=== PATIENT | male | born 1965 | race Hispanic/Latino ===

== ENCOUNTER 2017-11-17 19:41 | Emergency (ER) | payer SELFPAY ==
[~2017-11-17 19:41] MED LIST: FISH; OSTEO BI-FLEX1 EAC1; VIT B-12; VIT. C
[2017-11-25] MEDS ORDERED: ABX (16:38)
== END 2017-11-17 19:49 | disposition short-term general hospital (02) ==
LOC: ER 19:41
DX: R10.9 Unspecified abdominal pain (principal)

== ENCOUNTER 2017-11-26 05:38 | Observation (INO) | payer OTHER ==
[~2017-11-26] VITALS: Ht 177.8 cm; Wt 119.3 kg
[~2017-11-26 05:38] MED LIST changes: +ABX
[2017-11-26] MEDS ORDERED: CEPHALEXIN500 MG PO (06:22)
[2017-11-26] MEDS ORDERED: FLOMAX0.4 MG PO (06:22)
[2017-11-26 06:44] LABS: BASOPHILS # (AUTO) 0.1 (0.0-0.1); BASOPHILS % 0.9 % (0.0-1.0); EOSINOPHILS # (AUTO) 0.1 (0.0-0.4); EOSINOPHILS % 1.9 % (0.0-6.0); HEMATOCRIT 48.3 % (38.2-49.6); HEMOGLOBIN 16.4 g/dL (14.0-18.0); LYMPHOCYTES # (AUTO) 2.1 (1.0-3.2); LYMPHOCYTES % 36.3 % (18.0-39.1); MEAN CORPUSCULAR HEMOGLOBIN 31.2 pg (28-32); MEAN CORPUSCULAR VOLUME 91.8 fL (81-99); MONOCYTES # (AUTO) 0.4 (0.2-0.8); MONOCYTES % 7.4 % (4.4-11.3); NEUTROPHILS # (AUTO) 3.1 (2.1-6.9); NEUTROPHILS % 53.2 % (38.7-80.0); PLATELET COUNT 292 x10e3/uL (140-360); RED BLOOD COUNT 5.26 x10e6/uL (4.3-5.7); RED CELL DISTRIBUTION WIDTH 12.6 % (11.7-14.4)
[2017-11-26 06:54] LABS: BLOOD UREA NITROGEN 21 mg/dL (7-26); BUN/CREATININE RATIO 24 (6-25); CARBON DIOXIDE 25 mmol/L (22-29); CHLORIDE 107 mmol/L (98-107); CREATININE, SERUM 0.86 mg/dL (0.72-1.25); EST GLOMERULAR FILTRATION RATE > 60 ML/MIN (60-); GLUCOSE 103 mg/dL (74-118); SODIUM 141 mmol/L (136-145)
--- NOTE | 2017-11-26 07:05 | Diagnostic Imaging Report ---
EXAMINATION: CHEST 2 VIEWS INDICATION: Presurgical assessment. COMPARISON: None FINDINGS: TUBES and LINES: None. LUNGS: Lungs are well inflated. Lungs are clear. There is no evidence of pneumonia or pulmonary edema. PLEURA: No pleural effusion or pneumothorax. HEART AND MEDIASTINUM: The cardiomediastinal silhouette is unremarkable. BONES AND SOFT TISSUES: No acute osseous lesion. Soft tissues are unremarkable. UPPER ABDOMEN: No free air under the diaphragm. IMPRESSION: No acute thoracic abnormality. Signed by: Dr. Arley Sorensen M.D. on 11/26/2017 7:01 AM
[2017-11-26] MEDS ORDERED: BUPIVACAINE 0.25% 30ML SDV INJ ONE (07:09)
[2017-11-26] MEDS ORDERED: BACITRACIN 50,000 UNIT VIAL ONE (07:09)
[2017-11-26] MEDS ORDERED: BACITRACIN ZINC 15 GM OINT ONE (10:07)
[2017-11-26] MEDS ORDERED: HYDROMORPHONE 1MG/1ML INJ IV PRN (10:30)
[2017-11-26] MEDS ORDERED: PROMETHAZINE HCL (IM) 25 MG/ML VIAL IV PRN (10:30)
[2017-11-26] MEDS ORDERED: FENTANYL CITRATE/PF 100MCG/2 ML INJ ONE ×2 (10:34→19:06)
[2017-11-26] MEDS ORDERED: PROMETHAZINE 12.5MG/ NACL 0.9% 50 ML IV PRN (10:45)
[2017-11-26] MEDS ORDERED: HYDROMORPHONE 2MG/ML INJ ONE (11:05)
--- NOTE | 2017-11-26 11:06 | Operative Report ---
DATE OF PROCEDURE: November 26, 2017 PREOPERATIVE DIAGNOSIS: Ventral hernia. POSTOPERATIVE DIAGNOSIS: Ventral hernia. PROCEDURES PERFORMED 1. Repair of ventral hernia with a double mesh. 2. Omentectomy. FITNESS SALES CONSULTANT: MICHELLE Alejo ESTIMATED BLOOD LOSS: Minimal. DRAINS: A 7 mm Juan J-Red drain. COMPLICATIONS: None. INDICATIONS AND FINDINGS: A 52-year-old male who had undergone repair of a ventral hernias as a child superior to the umbilicus around the midline. Had developed a recurrence and now is admitted for repair. INTRAOPERATIVE FINDINGS: The patient had a midline defect that was located between the umbilicus and the xiphoid region with herniation of large amounts of omentum through a sac. There was no bowel within the sac. The Ventralex large size mesh was deployed intra-abdominally, and then a 3 x 5 Ultra Pro flat mesh was placed over the previously placed intra-abdominal mesh to reinforce the closure. A 7 mm Juan J-Red drain was placed in the field. DESCRIPTION OF PROCEDURE: With the patient lying on the operative table in the supine position and after administration of general anesthesia, he was prepped and draped for repair of a ventral. A transverse incision was made across the palpable hernia, which was much larger than the actual fascial defect as is usually the case. The hernia was then dissected free from the surrounding tissues. The sac was entered. It was excised using thermal energy cautery. The omentum was excised using the same instrument, Ethicon made. The fascial edges were then prepared for closure. Then the Ventralex large mesh was deployed intra-abdominally. It was secured to the fascia with 2-0 Ethibond sutures. The straps were then cut, and then the fascia was loosely closed over the mesh to add another barrier to the exterior. Then a 3 x 5 Ultra Pro mesh was cut to appropriate size. It was placed to cover the previously placed hernia with at last 3 cm in each direction from the suture line. It was secured to the fascia with 2-0 Ethibond sutures. The wound irrigated. Bleeding points cauterized. A local block was given with plain Marcaine. Then the wound was closed in 2 layers using 2-0 chromic for the soft tissues and deeper layers, and 2-0 plain catgut for the more superficial soft tissue layer. The skin was closed with a combination of 3-0 silk and magdy. Sterile dressing and a binder were placed. The patient tolerated the procedure well. Was taken to the recovery room in stable condition. Job#: [id number] RI
[2017-11-26 13:14] VITALS: BP 139/74
[2017-11-26] MEDS: ONDANSETRON HCL INJ 2 MG/ML VIAL IV PRN ×2 (13:33→20:00)
[2017-11-26] MEDS: LEVOFLOXACIN 500MG/D5W 100ML 100 ML IV SCH ×2 (13:33→16:05)
[2017-11-26] MEDS: HYDROMORPHONE 2MG/ML INJ IV PRN ×2 (15:00→20:00)
[2017-11-26 16:00] VITALS: BP 134/74
[2017-11-26] MEDS: DEXTROSE 5%/LACTATED RINGERS 1,000 ML IV SCH ×2 (16:04→18:16)
[2017-11-26] MEDS ORDERED: LIDOCAINE HCL 2% LOCAL INJ 5 ML SDV VIAL INJ ONE (18:58)
[2017-11-26] MEDS ORDERED: GLYCOPYRROLATE INJ 1MG/ 5 ML SYR ONE (18:58)
[2017-11-26] MEDS ORDERED: NEOSTIGMINE 5 MG/5ML SYR ONE (18:58)
[2017-11-26] MEDS ORDERED: ROCURONIUM BROMIDE 10 MG/ML 5ML VIAL ONE (18:58)
[2017-11-26] MEDS ORDERED: SEVOFLURANE INHAL SOLN 250 ML PEN BTL ONE (18:58)
[2017-11-26] MEDS ORDERED: PROPOFOL IV EMULSION 10 MG/ML 20 ML VIAL ONE (18:58)
[2017-11-26] MEDS ORDERED: DEXAMETHASONE SOD PHOS INJ 4 MG/ML VIAL ONE (18:58)
[2017-11-26] MEDS ORDERED: ONDANSETRON HCL INJ 2 MG/ML VIAL ONE (18:58)
[2017-11-26] MEDS ORDERED: MIDAZOLAM HCL 2 MG/2 ML VIAL ONE (19:06)
[2017-11-26 20:00] VITALS: BP 126/73
[2017-11-27] VITALS (7 sets, daily range): BP systolic 119–137; BP diastolic 62–76
[2017-11-27] MEDS: HYDROMORPHONE 2MG/ML INJ IV PRN ×2 (04:00→10:32)
[2017-11-27] MEDS: DEXTROSE 5%/LACTATED RINGERS 1,000 ML IV SCH ×2 (04:00→19:05)
[2017-11-27] MEDS: ONDANSETRON HCL INJ 2 MG/ML VIAL IV PRN ×2 (10:31→17:21)
[2017-11-27] MEDS: HYDROCODONE/APAP 7.5MG-325MG 1 EA TAB PO PRN ×2 (10:31→17:21)
[2017-11-28] VITALS (8 sets, daily range): BP systolic 128–149; BP diastolic 62–83
[2017-11-28] MEDS: HYDROCODONE/APAP 7.5MG-325MG 1 EA TAB PO PRN ×3 (00:09→16:01)
[2017-11-28] MEDS: DEXTROSE 5%/LACTATED RINGERS 1,000 ML IV SCH ×4 (02:21→21:12)
[2017-11-28 10:09] LABS: BASOPHILS % 0.5 % (0.0-1.0); EOSINOPHILS % 0.3 % (0.0-6.0); HEMATOCRIT 44.5 % (38.2-49.6); HEMOGLOBIN 14.9 g/dL (14.0-18.0); LYMPHOCYTES # (AUTO) 1.8 (1.0-3.2); LYMPHOCYTES % 20.3 % (18.0-39.1); MEAN CORPUSCULAR HEMOGLOBIN 31.1 pg (28-32); MEAN CORPUSCULAR HGB CONC 33.5 g/dL (31-35); MEAN CORPUSCULAR VOLUME 92.9 fL (81-99); MONOCYTES # (AUTO) 0.8 (0.2-0.8); MONOCYTES % 9.4 % (4.4-11.3); NEUTROPHILS # (AUTO) 6.1 (2.1-6.9); NEUTROPHILS % 69.2 % (38.7-80.0); PLATELET COUNT 282 x10e3/uL (140-360); RED BLOOD COUNT 4.79 x10e6/uL (4.3-5.7); RED CELL DISTRIBUTION WIDTH 12.6 % (11.7-14.4)
[2017-11-28 10:30] LABS: ANION GAP 12.8 mmol/L (8-16); BLOOD UREA NITROGEN 15 mg/dL (7-26); BUN/CREATININE RATIO 18 (6-25); CARBON DIOXIDE 26 mmol/L (22-29); CHLORIDE 103 mmol/L (98-107); CREATININE, SERUM 0.85 mg/dL (0.72-1.25); EST GLOMERULAR FILTRATION RATE > 60 ML/MIN (60-); GLUCOSE 96 mg/dL (74-118); POTASSIUM 3.8 mmol/L (3.5-5.1); SODIUM 138 mmol/L (136-145)
[2017-11-28] MEDS: LEVOFLOXACIN 500MG/D5W 100ML 100 ML IV SCH (11:37)
[2017-11-28] MEDS: ONDANSETRON HCL INJ 2 MG/ML VIAL IV PRN (11:38)
[2017-11-28] MEDS: HYDROMORPHONE 2MG/ML INJ IV PRN (11:38)
[2017-11-28] MEDS ORDERED: ACETAMINOPHEN 325 MG TAB PO PRN (16:00)
[2017-11-29] VITALS: BP 128/80
[2017-11-29 04:00] VITALS: BP 152/86
[2017-11-29 08:25] VITALS: BP 127/75
[2017-11-29 09:31] VITALS: BP 127/75
[2017-11-29] MEDS: DEXTROSE 5%/LACTATED RINGERS 1,000 ML IV SCH (09:55)
[2017-11-29] MEDS ORDERED: CITRATE OF MAGNESIA 300ML BOTTLE PO ONE (10:00)
[2017-11-29] MEDS: LEVOFLOXACIN 500MG/D5W 100ML 100 ML IV SCH (11:39)
[2017-11-29 12:37] VITALS: BP 141/76
[2017-11-29 15:48] VITALS: BP 139/84
[2017-11-29] MEDS ORDERED: PROMETHAZINE HC25 M1 PO (17:46)
[2017-11-29] MEDS ORDERED: TYLENOL WITH C1 EACH PO (17:46)
== END 2017-11-29 18:23 | disposition home or self-care (01) ==
LOC: OR 05:38 → MED/SURG 10:44
PROVIDERS: ADMIT Surgery; ATTEND Surgery
DX: K43.2 Incisional hernia without obstruction or gangrene (principal); N20.1 Calculus of ureter; F32.9 Major depressive disorder, single episode, unspecified; F41.9 Anxiety disorder, unspecified
CPT/HCPCS: 36415 ×2; 49565; 49568; 71046; 80048 ×2; 85025 ×2; 88302; 93005; 96375; 96376; C1781 ×2; G0378 ×4; J1100; J1170 ×3; J1956 ×3; J2001; J2250; J2405 ×3; J7120 ×4; 96374

== ENCOUNTER 2017-12-12 19:01 | Inpatient (IN) | payer OTHER ==
[~2017-12-12] VITALS: Ht 177.8 cm; Wt 119.5 kg
[~2017-12-12 19:01] MED LIST changes: +CEPHALEXIN500 MG PO; +FLOMAX0.4 MG PO; +PROMETHAZINE HC25 M1 PO; +TYLENOL WITH C1 EACH PO
--- OUTSIDE RECORDS SUMMARY | 2017-12-12 19:04 | XMS REPORT ---
[facility] Address Unknown Phone Unavailable Care Team Providers Care Manager Generation Name Role Phone SARA VALLADARES Unavailable Unavailable Problems This patient has no known problems. Allergies, Adverse Reactions, Alerts This patient has no known allergies or adverse reactions. Medications This patient has no known medications. Results Test Description Test Time Test Comments Text Results Atomic Results Result Comments CHEST 2 VIEWS [place] [address] Patient Name: NABIL GEORGE MR #: [id number] : 1965 Age/Sex: 52/M Req #: [id number] Adm Physician: Ordered by: SARA VALLADARES MD Report #: [id number] Location: OR Room/Bed: Procedure: [id number] DX/CHEST 2 VIEWS Exam Date: 11/26/17 Exam Time : 0636 REPORT STATUS: Signed EXAMINATION: CHEST 2 VIEWS INDICATION: Presurgical assessment. COMPARISON: None FINDINGS: TUBES and LINES: None. LUNGS: Lungs are well inflated. Lungs are clear. There is no evidence of pneumonia or pulmonary edema. PLEURA: No pleural effusion or pneumothorax. HEART AND MEDIASTINUM: The cardiomediastinal silhouette is unremarkable. BONES AND SOFT TISSUES: No acute osseous lesion. Soft tissues are unremarkable. UPPER ABDOMEN: No free air under the diaphragm. IMPRESSION: No acute thoracic abnormality. Signed by: Dr. Arley Sorensen M.D. on 11/26/2017 7:01 AM Dictated By: ARLEY WILLIAMSON MD 0 Transcribed By: FRANKLYN on 11/26/17700 COPY TO: SARA VALLADARES MD
--- OUTSIDE RECORDS SUMMARY | 2017-12-12 19:04 | XMS REPORT | Clinical Summary ---
Author Author [facility] Address Unknown Phone Unavailable Care Team Providers Care Crime Scene Analyst Name Role Phone Asked, Pcp PCP Unavailable Allergies Not on File Current Medications Prescription Sig. Disp. Refills Start End Date Status Date cephalexin (KEFLEX) 500 TK ONE C PO TID TAT 0 11/17/19 Active MG capsule 18 keTOROlac (TORadol) 10 mg TK 1 T PO Q 6-8 H 0 11/17/19 Active tablet 18 tamsulosin (FLOMAX) 0.4 TK 1 C PO QHS 0 11/17/19 Active mg capsule,extended 18 release 24hr Active Problems Problem Noted Date Right ureteral stone 11/23/2017 Encounters Date Type Specialty Care Team Description 11/23/2017 Office Visit Urology Mary Beth Araya MD Right ureteral stone (Primary Dx) after 12/11/2016 Social History Tobacco Use Types Packs/Day Years Used Date Never Smoker Alcohol Use Drinks/Week oz/Week Comments No Sex Assigned at Date Recorded Not on file Last Filed Vital Signs Vital Sign Reading Time Taken Blood Pressure 123/82 11/23/2017 10:31 AM SYNCHRO ASSEMBLER Pulse 76 11/23/2017 10:31 AM SYNCHRO ASSEMBLER Temperature 36.8 C (98.2 F) 11/23/2017 10:31 AM SYNCHRO ASSEMBLER Respiratory Rate - - Oxygen Saturation - - Inhaled Oxygen - - Concentration Weight 122 kg (268 lb) 11/23/2017 10:31 AM SYNCHRO ASSEMBLER Height 177.8 cm (5' 10") 11/23/2017 10:31 AM SYNCHRO ASSEMBLER Body Mass Index 38.45 11/23/2017 10:31 AM SYNCHRO ASSEMBLER Plan of Treatment Date Type Specialty Care Team Description 12/16/2017 Office Visit Urology Mary Beth Araya MD [address] [place] [address] [phone] Health Maintenance Due Date Last Done Comments INFLUENZA VACCINE 06/08/2017 COLONOSCOPY 2017 Results Not on fileafter 12/11/2016 Insurance Payer Benefit Subscriber ID Type Phone Address Plan / Group [facility] [id number] HMO/PPO THCARE CHOICE/CHO ICE +
[2017-12-12] MEDS ORDERED: FAMOTIDINE 20 MG/2 ML VIAL IV STA (20:29)
[2017-12-12] MEDS ORDERED: PANTOPRAZOLE 40 MG 10ML VIAL IV ONE (20:30)
[2017-12-12] MEDS ORDERED: MAGNESIUM/ALUMINUM/SIMETHICONE 30 ML UDC PO ONE (20:30)
[2017-12-12] MEDS ORDERED: BELLADONNA ALK/PHENOBARBITAL 5 ML UDC PO ONE (20:30)
[2017-12-12] MEDS ORDERED: ONDANSETRON HCL 4 MG ORAL DISINTEGRATING TAB SL ONE (20:45)
[2017-12-12] MEDS ORDERED: LIDOCAINE VISC 2% SOLN 15 ML UDC PO ONE (20:45)
[2017-12-12] MEDS ORDERED: KEFLEX500 MG (21:20)
[2017-12-13] MEDS ORDERED: SODIUM CHLORIDE 0.9% 1000ML 1,000 ML ONE (01:30)
[2017-12-13] MEDS ORDERED: MORPHINE SULFATE 4 MG/ML SYR IV ONE (01:30)
[2017-12-13] MEDS: SODIUM CHLORIDE 0.9% 1000ML 1,000 ML IV SCH ×3 (01:45→22:00)
[2017-12-13] MEDS ORDERED: ONDANSETRON HCL INJ 2 MG/ML VIAL IV PRN ×4 (02:30→20:00)
[2017-12-13] MEDS ORDERED: MORPHINE SULFATE 2 MG/ML SYR IV PRN (02:30)
--- OUTSIDE RECORDS SUMMARY | 2017-12-13 12:00 | XMS REPORT | Clinical Summary ---
Author Author [facility] Address Unknown Phone Unavailable Care Team Providers Care Under Cutter Name Role Phone Asked, Pcp PCP Unavailable [...] MD Right ureteral stone (Primary Dx) after 12/12/2016 Social History Tobacco Use Types Packs/Day Years Used Date Never Smoker Alcohol Use Drinks/Week oz/Week Comments No Sex Assigned at Date Recorded Not on file Last Filed Vital Signs Vital Sign Reading Time Taken Blood Pressure 123/82 11/23/2017 10:31 AM SLACKMAN Pulse 76 11/23/2017 10:31 AM SLACKMAN Temperature 36.8 C (98.2 F) 11/23/2017 10:31 AM SLACKMAN Respiratory Rate - - Oxygen Saturation - - Inhaled Oxygen - - Concentration Weight 122 kg (268 lb) 11/23/2017 10:31 AM SLACKMAN Height 177.8 cm (5' 10") 11/23/2017 10:31 AM SLACKMAN Body Mass Index 38.45 11/23/2017 10:31 AM SLACKMAN Plan of Treatment Date Type Specialty Care Team Description 12/16/2017 Office Visit Urology Mary Beth Araya MD [address] [place] [address] [phone] Health Maintenance Due Date Last Done Comments INFLUENZA VACCINE 06/08/2017 COLONOSCOPY 2017 Results Not on fileafter 12/12/2016 Insurance Payer Benefit Subscriber ID Type Phone Address Plan / Group [facility] [id number] HMO/PPO THCARE CHOICE/CHO ICE +
--- OUTSIDE RECORDS SUMMARY | 2017-12-13 12:00 | XMS REPORT | Continuity of Care Document ---
Author Author [facility] Organization [facility] Address [address] [place] [address] Phone Unavailable Care Team Providers Care Nurses Educator Name Role Phone NO, PCP PCP Unavailable Insurance Providers Guarantor Nabil Giles Address [address] [place] [address] Email NONE [facility] Policy Number [id number] Subscriber's Name ChanNabil Relationship 18 Self / Same As Patient Group Number [id number] Effective Date 17 Advance Directives Directive Response Recorded Date/Time Does the patient have an advance directive? No 11/26/17 12:45pm If yes, is advance directive on file with [facility]? No 11/26/17 12:45pm If not on file with [facility] will patient provide a copy? No 11/26/17 12:45pm Do you have a Directive to Physician? No 12/13/17 7:56am Do you have a Medical Power of Phlebotomy Supervisor? No 12/13/17 7:56am Do you have an out of hospital Do Not Resuscitate Order? No 12/13/17 7:56am Do you have any special needs we should be aware of? No 12/13/17 7:56am Do you have a support person here with you today? Yes 12/13/17 7:56am Did patient receive Notice of Privacy Practices? Yes 12/13/17 7:56am Did patient receive patient rights and responsibilities? Yes 12/13/17 7:56am Problems Medical Problem Onset Date Status SBO (small bowel obstruction) Unknown Small bowel obstruction Unknown Medications Current Home Medications Medication Dose Units Route Directions Days Qty Instructions Start Date Acetaminophen With Codeine (Tylenol With Codeine #3 Tablet) 1 Each Tablet 300 Mg Oral Every 4 Hours as needed for Pain Cephalexin Monohydrate (Keflex) 500 Mg Capsule Promethazine Hcl 25 Mg Tablet 25 Mg Oral Every 4 Hours as needed for Nausea Tamsulosin Hcl (Flomax*) 0.4 Mg Cap 0.4 Mg Oral Daily 30 Cap Past Home Medications Medication Directions Ordered Status Abx , Discontinued Cephalexin 500 Mg Capsule, 500 Mg Oral Three Times A Day Discontinued Fish , Daily Discontinued Gluc/Yfn-Msm#1/C/Bravo/Ihsan/Bor (Osteo Bi-Flex Caplet) 1 Each Tablet, D Discontinued Vit B-12 , Daily Discontinued Vit. C , Daily Discontinued Social History Social History Problem Response Recorded Date/Time Onset Date Status Hx Psychiatric Problems Yes 11/26/2017 12:45pm Not Applicable Not Applicable Hx Eating Disorder No 11/26/2017 12:45pm Not Applicable Not Applicable Hx Substance Use Disorder No 11/26/2017 12:45pm Not Applicable Not Applicable Hx Depression Yes 11/26/2017 12:45pm Not Applicable Not Applicable Hx Alcohol Use No 11/26/2017 12:45pm Not Applicable Not Applicable Hx Substance Use Treatment No 11/26/2017 12:45pm Not Applicable Not Applicable Hx Physical Abuse No 11/26/2017 12:45pm Not Applicable Not Applicable Smoking Status Start Date Stop Date Never Smoker Hospital Discharge Instructions No hospital discharge instruction information available. Plan of Care Discharge Date 12/13/17 11:47am Disposition ADMITTED Condition at Discharge Stable Forms Provided Work/School Excuse Prescriptions See Medication Section Functional Status No functional status information available. Allergies, Adverse Reactions, Alerts No known allergies. Immunizations No immunization information available. Vital Signs Acute Vital Signs Vital Response Date/Time Temperature (Fahrenheit) 98.0 degrees F (97.6 - 99.5) 12/13/2017 11:39am Pulse Pulse Rate (adult) 88 bpm (60 - 90) 12/13/2017 11:39am Respiratory Rate 16 bpm (12 - 24) 12/13/2017 11:39am Blood Pressure 145/82 mm Hg 12/13/2017 11:39am Height 5 ft 10 in 12/12/2017 7:10pm Weight 249.38 lb 12/12/2017 7:10pm Body Mass Index 35.8 kg/m^2 12/12/2017 7:10pm Results Laboratory Results Test Name Result Units Flags Reference Collection Date/Time Result Date/ Time Comments White Blood Count 8.79 x10e3/uL # 4.8-10.8 11/28/2017 9:44am 11/28/2017 10:15am Red Blood Count 4.79 x10e6/uL 4.3-5.7 11/28/2017 9:44am 11/28/2017 10: 15am Hemoglobin 14.9 g/dL 14.0-18.0 11/28/2017 9:44am 11/28/2017 10:15am Hematocrit 44.5 % 38.2-49.6 11/28/2017 9:44am 11/28/2017 10:15am Mean Corpuscular Volume 92.9 fL 81-99 11/28/2017 9:44am 11/28/2017 10: 15am Mean Corpuscular Hemoglobin 31.1 pg 28-32 11/28/2017 9:44am 11/28/2017 10:15am Mean Corpuscular Hemoglobin Concent 33.5 g/dL 31-35 11/28/2017 9:44am 11/28/2017 10:15am Red Cell Distribution Width 12.6 % 11.7-14.4 11/28/2017 9:44am 2017 10:15am Platelet Count 282 x10e3/uL 140-360 11/28/2017 9:44am 11/28/2017 10: 15am Neutrophils (%) (Auto) 69.2 % 38.7-80.0 11/28/2017 9:44am 11/28/2017 10 :15am Lymphocytes (%) (Auto) 20.3 % 18.0-39.1 11/28/2017 9:44am 11/28/2017 10 :15am Monocytes (%) (Auto) 9.4 % 4.4-11.3 11/28/2017 9:44am 11/28/2017 10: 15am Eosinophils (%) (Auto) 0.3 % 0.0-6.0 11/28/2017 9:44am 11/28/2017 10: 15am Basophils (%) (Auto) 0.5 % 0.0-1.0 11/28/2017 9:44am 11/28/2017 10: 15am IM GRANULOCYTES % 0.3 % 0.0-1.0 11/28/2017 9:44am 11/28/2017 10:15am Neutrophils # (Auto) 6.1 2.1-6.9 11/28/2017 9:44am 11/28/2017 10: 15am Lymphocytes # (Auto) 1.8 1.0-3.2 11/28/2017 9:44am 11/28/2017 10: 15am Monocytes # (Auto) 0.8 0.2-0.8 11/28/2017 9:44am 11/28/2017 10:15am Eosinophils # (Auto) 0.0 0.0-0.4 11/28/2017 9:44am 11/28/2017 10: 15am Basophils # (Auto) 0.0 0.0-0.1 11/28/2017 9:44am 11/28/2017 10:15am Absolute Immature Granulocyte (auto 0.03 x10e3/uL 0-0.1 11/28/2017 9: 44am 11/28/2017 10:15am Sodium Level 138 mmol/L 136-145 11/28/2017 9:44am 11/28/2017 10:31am Potassium Level 3.8 mmol/L 3.5-5.1 11/28/2017 9:44am 11/28/2017 10: 31am Chloride Level 103 mmol/L 98-107 11/28/2017 9:44am 11/28/2017 10:31am Carbon Dioxide Level 26 mmol/L 22-29 11/28/2017 9:44am 11/28/2017 10: 31am Anion Gap 12.8 mmol/L 8-16 11/28/2017 9:44am 11/28/2017 10:31am Blood Urea Nitrogen 15 mg/dL 7-11/28/2017 9:44am 11/28/2017 10:31am Creatinine 0.85 mg/dL 0.72-1.25 11/28/2017 9:44am 11/28/2017 10:31am BUN/Creatinine Ratio 18 6-11/28/2017 9:44am 11/28/2017 10:31am Estimat Glomerular Filtration Rate > 60 ML/MIN 60- 11/28/2017 9:44am 10:31am Ranges were taken from the National Kidney Disease Education Program and the National Kidney Foundation literature. Reference ranges: 60 or greater: Normal 16-59 (for 3 consecutive months): Chronic kidney disease 15 or less: Kidney failure Glucose Level 96 mg/dL 74-118 11/28/2017 9:44am 11/28/2017 10:31am Calcium Level 9.0 mg/dL 8.4-10.2 11/28/2017 9:44am 11/28/2017 10:31am Procedures Procedure Status Date Provider(s) Repair of hernia of anterior abdominal wall Completed 11/26/17 SARA VALLADARES MD X-ray of chest, two views Active 11/26/17 SARA VALLADARES MD Encounters Encounter Location Arrival/Admit Date Discharge/Depart Date Attending Provider [facility] 12/12/17 7:01pm 11:47am MICHAEL SHORT MD [facility] 11/26/17 10:44am 6:23pm SARA VALLADARES MD [facility] 11/17/17 7:41pm 7:49pm DESTINEE KRISHNAN MD
[2017-12-13] MEDS ORDERED: PANTOPRAZOLE 40 MG 10ML VIAL IV SCH (12:15)
[2017-12-13 12:30] VITALS: BP 145/82
[2017-12-13 12:43] VITALS: BP 121/74
[2017-12-13] MEDS ORDERED: DIATRIZOATE MEGL/DIATRIZOA SOD 30 ML BTL PO ONE (12:45)
[2017-12-13] MEDS ORDERED: D5.45%NS/KCL 20MEQ 1,000 ML IV SCH (12:45)
[2017-12-13 13:06] VITALS: BP 121/74
--- NOTE | 2017-12-13 14:28 | Diagnostic Imaging Report ---
PROCEDURE:CT ABDOMEN AND PELVIS WITH CONTRAST COMPARISON:None. INDICATIONS:Abdominal pain status post hernia repair TECHNIQUE: Routine protocol limit to CT abdomen and pelvis after ministration of 100 mL Isovue 370 intravenous contrast and 900 mL positive enteric contrast. Multiplanar reformatted images. DLP: 943.94 FINDINGS: Clear lung bases. No pleural effusions. Normal heart size. Liver: Normal Gallbladder: Normal Pancreas: Normal Spleen: Normal Adrenal glands: Normal Kidneys: Normal. No renal stones. Urinary bladder: Normal Prostate and seminal vesicles: Normal Bowel: Fluid distended jejunum extending to the anterior aspect of the abdomen, were there is a focal transition point associated with recent surgical mesh. The afferent loop measures 5 cm in diameter, while the efferent limb is completely decompressed (see image 44, series 2). Distal jejunum, ileum and large bowel are completely decompressed. No pneumatosis or focal bowel wall thickening. Peritoneum: Normal Vasculature: The normal caliber. Trace infrarenal aortic atherosclerosis. Lymph nodes: Normal Skeleton: Intact Soft tissues: Large left inguinal hernia containing decompressed loops of sigmoid colon and fat (image 85, series 2) and without regional inflammation. Regional fat stranding at the anterior abdomen consistent with recent supraumbilical hernia repair. Findings discussed with Dr. Shay at 2:20 PM December 13, 2017 CONCLUSION: 1. Complete bowel obstruction, with a transition point at the mid jejunum in association with anterior surgical mesh as described. 2. Large left inguinal hernia containing decompressed sigmoid colon without evidence of obstruction or regional inflammation. Dictated by: Oscar Tolbert M.D. on 12/13/2017 at 14:37 Electronically approved by: Oscar Tolbert M.D. on 12/13/2017 at 14:37
[2017-12-13] MEDS ORDERED: CEFOXITIN 2GM/ D5W 50ML 50 ML IV ONE (14:30)
[2017-12-13] MEDS ORDERED: SODIUM CHLORIDE 0.9% 50ML 50 ML ONE (15:11)
[2017-12-13] MEDS ORDERED: IOPAMIDOL 370 MG/ML 200 ML INFUS..BTL INJ ONE (15:11)
[2017-12-13 15:32] VITALS: BP 125/81
[2017-12-13] MEDS ORDERED: FAMOTIDINE 20 MG/2 ML VIAL IV ONE (15:40)
[2017-12-13] MEDS ORDERED: LIDOCAINE HCL 2% LOCAL INJ 5 ML SDV VIAL INJ ONE (18:12)
[2017-12-13] MEDS ORDERED: ONDANSETRON HCL INJ 2 MG/ML VIAL ONE (18:12)
[2017-12-13] MEDS ORDERED: PROPOFOL IV EMULSION 10 MG/ML 20 ML VIAL ONE (18:12)
[2017-12-13] MEDS ORDERED: KETOROLAC TROMETHAMINE 30 MG/ML VIAL ONE (18:12)
[2017-12-13] MEDS ORDERED: DESFLURANE 240 ML BTL INH ONE (18:12)
[2017-12-13] MEDS ORDERED: SUCCINYLCHOLINE 200 MG/10 ML SYR ONE (18:12)
[2017-12-13] MEDS ORDERED: DEXAMETHASONE SOD PHOS INJ 4 MG/ML VIAL ONE (18:12)
[2017-12-13] MEDS ORDERED: ROCURONIUM BROMIDE 10 MG/ML 5ML VIAL ONE (18:12)
[2017-12-13] MEDS ORDERED: HYDROGEN PEROXIDE 120 ML BTL ONE (18:42)
[2017-12-13] MEDS ORDERED: FENTANYL CITRATE/PF 100MCG/2 ML INJ ONE (18:44)
[2017-12-13] MEDS ORDERED: MIDAZOLAM HCL 2 MG/2 ML VIAL ONE (18:44)
[2017-12-13] MEDS ORDERED: MORPHINE SULFATE INJ 10 MG/ML ONE (18:44)
[2017-12-13] MEDS ORDERED: NEOSTIGMINE 1 MG/ML 10ML VIAL ONE (19:04)
[2017-12-13] MEDS ORDERED: SODIUM CHLORIDE 0.9% 1000ML 1,000 ML IV SCH (19:44)
[2017-12-13] MEDS: SODIUM CHLORIDE 0.9% 250ML IRRIG IR SCH ×2 (19:45→22:00)
[2017-12-13] MEDS ORDERED: DIPHENHYDRAMINE HCL 25 MG CAP PO PRN (20:00)
[2017-12-13] MEDS ORDERED: DIPHENHYDRAMINE HCL INJ 50 MG/ML VIAL IM PRN (20:00)
[2017-12-13] MEDS ORDERED: KETOROLAC TROMETHAMINE 30 MG/ML VIAL IV PRN (20:00)
[2017-12-13] MEDS ORDERED: HYDROMORPHONE 0.2MG/ML-SOD CHL 30ML PCA SYRINGE IV PRN (20:00)
[2017-12-13] MEDS ORDERED: NALOXONE HCL INJ 0.4 MG/ML AMP IV PRN (20:00)
[2017-12-13] MEDS ORDERED: HYDROMORPHONE 0.2MG/ML-SOD CHL 30ML PCA SYRINGE IV ONE (20:26)
[2017-12-13 21:45] VITALS: BP 110/84
--- NOTE | 2017-12-13 23:21 | Operative Report ---
DATE OF PROCEDURE: December 13, 2017 PREOPERATIVE DIAGNOSIS: Small-bowel obstruction. POSTOPERATIVE DIAGNOSIS: Small-bowel obstruction. PROCEDURES PERFORMED 1. Exploratory laparotomy. 2. Small bowel resection with bjoe-tc-vadf stapled anastomosis and removal of old Ventralex large mesh. CHEMICAL DEPENDENCY ATTENDANT: Pedro from [employer] [employer]. ESTIMATED BLOOD LOSS: About 300 to 400 mL. DRAINS: One 10-mm flat Juan J-Red drain. COMPLICATIONS: None. INDICATIONS AND FINDINGS: The patient is a 52-year-old male who had undergone on November 26, 2017, a repair of ventral hernia with placement of intra-abdominal Ventralex mesh as well as overlay flat lightweight Ultrapro mesh. The patient was discharged home in stable condition and then he presented to the hospital complaining of abdominal pain, constipation, obstipation with no nausea, vomiting for several days. CT scan revealed complete bowel obstruction that was located in the area of the intra-abdominal mesh. The patient was then taken to the operating room for exploration. INTRAOPERATIVE FINDINGS: The patient had a piece of the small bowel that was stuck to the Ventralex mesh in an area where the mesh appeared to have partially folded on itself. Adhesion at that point was creating an obstruction, which appeared to be near complete. It was decided to resect that segment rather than risk the fistula. The old Ventralex mesh was removed and the wound was closed with interrupted 1 Prolene stitch and retention sutures with 1 Mersilene. A 10-mm flat Juan J-Red drain was placed to drain the abdominal incision. DESCRIPTION OF THE PROCEDURE: With the patient lying on the operating table in the supine position, after administration of general anesthesia, he was prepped and draped for exploratory laparotomy, mesh resection, mesh removal. The abdomen was entered via a midline incision that was perpendicular to the transverse incision that was made in the supraumbilical area. We carefully entered the abdomen through the midline in an area where there was no mesh placed, near the subxiphoid region and at that point, we had a free access to the abdominal cavity and then we carefully incised the Prolene system along the midline until we found the intra-abdominal Ventralex mesh. We then entered the abdomen from the inferior aspect of the wound inferior to the Ventralex mesh and then we detached the mesh from the abdominal cavity. At some point, the small bowel was stuck to the mesh creating a kinking with proximal dilated bowel and distal somewhat decompressed bowel. At that point, we then transected the small bowel about proximal and distal to the kinking and then we resected the old Ventralex mesh. The bowel proximally was filled with thick intestinal contents and it was edematous. There was a serosal tear more proximal to the kinking creating the obstruction and at that point, we decided instead of repairing the serosal tear with silk, to go ahead and resect that and decompress the bowel to that segment that was to be removed. We were able to do that between lap pads preventing any intra-abdominal contamination and then after we decompressed the bowel proximally where it contained large amounts of thick intestinal contents with particulate vegetable matter, we then performed a zfpb-wl-fsad anastomosis with the SOPHIE-75 stapler. We then closed the rent in the corner of the bowel that had been opened to anastomose the bowel with the stapler with TA-60 stapler and then we closed the staple line with 2-0 silk due to the fact that the bowel was very thick and combination of 3-0 silk also. We put a couple of stay sutures with 2-0 silk distal to the staple line to prevent any evidence of undue tension on the staple line. We copiously irrigated the abdominal cavity. We closed the rent in the mesentery with a running 2-0 Vicryl and then we placed the bowel into the abdominal cavity in an office technologist fashion and then covered with omentum. The sponge and instrument counts were pronounced correct at this time. We then placed 4 retention sutures with 1 Mersilene to prevent evisceration in the future. We then closed the abdominal wound with interrupted 1-Prolene stitches in a figure-of-8 fashion. It is to be mentioned at this point that the large pore lightweight polypropylene mesh had been placed as an onlay mesh was totally incorporated into the soft tissue and it was not removed. After we closed that wound, then we copiously irrigated the wound with saline and peroxide and Betadine and then we placed a 10-mm flat Juan J-Rde drain to drain the abdominal wound and secured it to the skin with 3-0 silk. We closed the wound with a combination of 2-0 silk and magdy. We tied the bolsters and retention over a red rubber catheter and then applied pressure dressing. Sterile dressing was applied. The patient tolerated the procedure well and was taken to recovery room in stable condition. DAVID: 12/13/2017 20:08 Job#: [id number] DANIELA
[2017-12-13] MEDS: PANTOPRAZOLE 40 MG 10ML VIAL IV SCH (23:38)
[2017-12-13] MEDS: PIPER-TAZ 3.375 GM 50 ML IV SCH (23:38)
[2017-12-14] VITALS (8 sets, daily range): BP systolic 108–136; BP diastolic 76–99
[2017-12-14] MEDS: SODIUM CHLORIDE 0.9% 250ML IRRIG IR SCH ×5 (02:00→20:24)
[2017-12-14] MEDS: PIPER-TAZ 3.375 GM 50 ML IV SCH ×3 (05:50→18:08)
[2017-12-14 06:27] LABS: BASOPHILS % 0.3 % (0.0-1.0); EOSINOPHILS % 0.2 % (0.0-6.0); HEMOGLOBIN 14.5 g/dL (14.0-18.0); LYMPHOCYTES # (AUTO) 1.1 (1.0-3.2); LYMPHOCYTES % 8.8 % (18.0-39.1); MEAN CORPUSCULAR HGB CONC 33.7 g/dL (31-35); MEAN CORPUSCULAR VOLUME 92.1 fL (81-99); MONOCYTES # (AUTO) 1.2 (0.2-0.8); MONOCYTES % 9.7 % (4.4-11.3); NEUTROPHILS # (AUTO) 9.6 (2.1-6.9); NEUTROPHILS % 80.2 % (38.7-80.0); PLATELET COUNT 373 x10e3/uL (140-360); RED BLOOD COUNT 4.67 x10e6/uL (4.3-5.7); RED CELL DISTRIBUTION WIDTH 12.3 % (11.7-14.4)
[2017-12-14 06:36] LABS: ANION GAP 14.7 mmol/L (8-16); BLOOD UREA NITROGEN 17 mg/dL (7-26); BUN/CREATININE RATIO 16 (6-25); CALCIUM 8.1 mg/dL (8.4-10.2); CARBON DIOXIDE 25 mmol/L (22-29); CHLORIDE 103 mmol/L (98-107); CREATININE, SERUM 1.04 mg/dL (0.72-1.25); EST GLOMERULAR FILTRATION RATE > 60 ML/MIN (60-); GLUCOSE 104 mg/dL (74-118); POTASSIUM 4.7 mmol/L (3.5-5.1); SODIUM 138 mmol/L (136-145)
[2017-12-14] MEDS: SODIUM CHLORIDE 0.9% 1000ML 1,000 ML IV SCH ×3 (09:07→23:26)
[2017-12-14] MEDS: KETOROLAC TROMETHAMINE 30 MG/ML VIAL IV PRN (11:45)
[2017-12-14] MEDS ORDERED: ACETAMINOPHEN 1000 MG/100 ML IV ONE (12:30)
[2017-12-14] MEDS: HYDROMORPHONE 0.2MG/ML-SOD CHL 30ML PCA SYRINGE IV PRN ×2 (13:15→20:02)
--- NOTE | 2017-12-14 15:36 | Diagnostic Imaging Report ---
PROCEDURE:ABDOMEN COMP INCL UPR OR DECUB INDICATION:Pain. Status post abdominal hernia repair. COMPARISON:[facility], CT, CT ABDOMEN/PELVIS W, 12/13/2017, 13:59. FINDINGS: Surgical drain projected on the right abdomen just to the right of the midline. Multiple surgical skin magdy. Anastomotic sutures are present in the right lower quadrant. Mild dilatation of small bowel loops likely reflect postoperative ileus. Gas is present within the rectum or urinary bladder. Mild DJD of hip joint bilaterally. CONCLUSI AON: Findings suggestive of mild postoperative ileus. Recommend followup KUB to resolution. Sera Mota M.D. Dictated by: Sera Mota M.D. on 12/14/2017 at 15:46 Electronically approved by: Sera Mota M.D. on 12/14/2017 at 15:46
[2017-12-15] VITALS (7 sets, daily range): BP systolic 112–143; BP diastolic 72–98
[2017-12-15] MEDS: SODIUM CHLORIDE 0.9% 250ML IRRIG IR SCH ×6 (01:03→20:30)
[2017-12-15] MEDS: PIPER-TAZ 3.375 GM 50 ML IV SCH ×4 (01:03→18:05)
[2017-12-15] MEDS: SODIUM CHLORIDE 0.9% 1000ML 1,000 ML IV SCH ×4 (06:39→20:30)
[2017-12-15 06:48] LABS: BASOPHILS # (AUTO) 0.1 (0.0-0.1); BASOPHILS % 0.3 % (0.0-1.0); EOSINOPHILS # (AUTO) 0.1 (0.0-0.4); EOSINOPHILS % 0.4 % (0.0-6.0); HEMATOCRIT 42.9 % (38.2-49.6); HEMOGLOBIN 14.2 g/dL (14.0-18.0); LYMPHOCYTES # (AUTO) 1.2 (1.0-3.2); MEAN CORPUSCULAR HEMOGLOBIN 30.7 pg (28-32); MEAN CORPUSCULAR HGB CONC 33.1 g/dL (31-35); MEAN CORPUSCULAR VOLUME 92.9 fL (81-99); MONOCYTES # (AUTO) 1.2 (0.2-0.8); MONOCYTES % 8.2 % (4.4-11.3); NEUTROPHILS # (AUTO) 12.4 (2.1-6.9); NEUTROPHILS % 82.7 % (38.7-80.0); PLATELET COUNT 328 x10e3/uL (140-360); RED BLOOD COUNT 4.62 x10e6/uL (4.3-5.7); RED CELL DISTRIBUTION WIDTH 12.8 % (11.7-14.4)
[2017-12-15 07:20] LABS: ANION GAP 15.5 mmol/L (8-16); BLOOD UREA NITROGEN 14 mg/dL (7-26); BUN/CREATININE RATIO 15 (6-25); CALCIUM 8.4 mg/dL (8.4-10.2); CARBON DIOXIDE 22 mmol/L (22-29); CHLORIDE 107 mmol/L (98-107); CREATININE, SERUM 0.93 mg/dL (0.72-1.25); EST GLOMERULAR FILTRATION RATE > 60 ML/MIN (60-); GLUCOSE 96 mg/dL (74-118); POTASSIUM 4.5 mmol/L (3.5-5.1); SODIUM 140 mmol/L (136-145)
[2017-12-15] MEDS: HYDROMORPHONE 0.2MG/ML-SOD CHL 30ML PCA SYRINGE IV PRN ×3 (09:11→19:07)
[2017-12-15] MEDS: KETOROLAC TROMETHAMINE 30 MG/ML VIAL IV PRN (11:54)
[2017-12-15] MEDS: PANTOPRAZOLE 40 MG 10ML VIAL IV SCH (20:30)
[2017-12-16] VITALS (7 sets, daily range): BP systolic 110–142; BP diastolic 72–99
[2017-12-16] MEDS: SODIUM CHLORIDE 0.9% 250ML IRRIG IR SCH ×8 (00:01→23:45)
[2017-12-16] MEDS: PIPER-TAZ 3.375 GM 50 ML IV SCH ×5 (00:01→23:46)
[2017-12-16] MEDS: HYDROMORPHONE 0.2MG/ML-SOD CHL 30ML PCA SYRINGE IV PRN (01:05)
[2017-12-16] MEDS: SODIUM CHLORIDE 0.9% 1000ML 1,000 ML IV SCH ×4 (03:28→21:07)
[2017-12-16] MEDS: KETOROLAC TROMETHAMINE 30 MG/ML VIAL IV PRN (03:28)
[2017-12-16 06:22] LABS: BASOPHILS # (AUTO) 0.1 (0.0-0.1); BASOPHILS % 0.4 % (0.0-1.0); EOSINOPHILS # (AUTO) 0.1 (0.0-0.4); HEMATOCRIT 37.9 % (38.2-49.6); LYMPHOCYTES % 7.9 % (18.0-39.1); MEAN CORPUSCULAR HEMOGLOBIN 30.8 pg (28-32); MEAN CORPUSCULAR HGB CONC 32.7 g/dL (31-35); MEAN CORPUSCULAR VOLUME 94.3 fL (81-99); MONOCYTES # (AUTO) 1.1 (0.2-0.8); MONOCYTES % 8.6 % (4.4-11.3); NEUTROPHILS # (AUTO) 10.2 (2.1-6.9); NEUTROPHILS % 81.5 % (38.7-80.0); PLATELET COUNT 270 x10e3/uL (140-360); RED BLOOD COUNT 4.02 x10e6/uL (4.3-5.7); RED CELL DISTRIBUTION WIDTH 13.2 % (11.7-14.4)
[2017-12-16 06:35] LABS: HEMOGLOBIN 12.4 g/dL (14.0-18.0)
[2017-12-16 06:44] LABS: ANION GAP 14.1 mmol/L (8-16); BLOOD UREA NITROGEN 16 mg/dL (7-26); BUN/CREATININE RATIO 20 (6-25); CALCIUM 7.9 mg/dL (8.4-10.2); CARBON DIOXIDE 22 mmol/L (22-29); CHLORIDE 111 mmol/L (98-107); CREATININE, SERUM 0.82 mg/dL (0.72-1.25); EST GLOMERULAR FILTRATION RATE > 60 ML/MIN (60-); GLUCOSE 97 mg/dL (74-118); POTASSIUM 4.1 mmol/L (3.5-5.1); SODIUM 143 mmol/L (136-145)
[2017-12-16] MEDS ORDERED: HYDROMORPHONE 0.2MG/ML-SOD CHL 30ML PCA SYRINGE IV PRN (08:00)
[2017-12-16] MEDS ORDERED: BISACODYL 10 MG SUPP PR ONE ×2 (08:00→16:15)
[2017-12-16] MEDS: HYDROMORPHONE 2MG/ML INJ IV PRN ×2 (20:17→23:20)
[2017-12-16] MEDS: PANTOPRAZOLE 40 MG 10ML VIAL IV SCH (20:17)
[2017-12-17] VITALS (7 sets, daily range): BP systolic 138–163; BP diastolic 67–88
[2017-12-17] MEDS: SODIUM CHLORIDE 0.9% 250ML IRRIG IR SCH ×2 (02:13→07:45)
[2017-12-17] MEDS: SODIUM CHLORIDE 0.9% 1000ML 1,000 ML IV SCH ×3 (02:13→20:11)
[2017-12-17] MEDS: PIPER-TAZ 3.375 GM 50 ML IV SCH ×3 (05:45→17:57)
[2017-12-17 07:28] LABS: BASOPHILS % 0.4 % (0.0-1.0); EOSINOPHILS # (AUTO) 0.1 (0.0-0.4); EOSINOPHILS % 1.3 % (0.0-6.0); HEMATOCRIT 36.9 % (38.2-49.6); HEMOGLOBIN 12.2 g/dL (14.0-18.0); LYMPHOCYTES # (AUTO) 0.8 (1.0-3.2); LYMPHOCYTES % 7.7 % (18.0-39.1); MEAN CORPUSCULAR HEMOGLOBIN 30.5 pg (28-32); MEAN CORPUSCULAR HGB CONC 33.1 g/dL (31-35); MEAN CORPUSCULAR VOLUME 92.3 fL (81-99); MONOCYTES # (AUTO) 0.5 (0.2-0.8); MONOCYTES % 5.1 % (4.4-11.3); NEUTROPHILS # (AUTO) 9.1 (2.1-6.9); PLATELET COUNT 317 x10e3/uL (140-360); RED CELL DISTRIBUTION WIDTH 13.2 % (11.7-14.4)
[2017-12-17] MEDS: HYDROMORPHONE 2MG/ML INJ IV PRN (07:43)
[2017-12-17 08:00] LABS: ALANINE AMINOTRANSFERASE 12 IU/L (0-55); ALBUMIN 2.4 g/dL (3.5-5.0); ALBUMIN/GLOBULIN RATIO 0.6 (0.8-2.0); ALKALINE PHOSPHATASE 88 IU/L (40-150); ANION GAP 14.8 mmol/L (8-16); BLOOD UREA NITROGEN 13 mg/dL (7-26); BUN/CREATININE RATIO 19 (6-25); CALCIUM 8.5 mg/dL (8.4-10.2); CARBON DIOXIDE 23 mmol/L (22-29); CHLORIDE 109 mmol/L (98-107); EST GLOMERULAR FILTRATION RATE > 60 ML/MIN (60-); GLUCOSE 109 mg/dL (74-118); POTASSIUM 3.8 mmol/L (3.5-5.1); SODIUM 143 mmol/L (136-145)
[2017-12-17] MEDS ORDERED: TEMAZEPAM 15 MG CAP PO PRN (17:00)
[2017-12-17] MEDS: HYDROCODONE/APAP 7.5MG-325MG 1 EA TAB PO PRN (20:08)
[2017-12-17] MEDS: PANTOPRAZOLE 40 MG 10ML VIAL IV SCH (20:11)
[2017-12-18] VITALS (8 sets, daily range): BP systolic 107–157; BP diastolic 67–85
[2017-12-18] MEDS: PIPER-TAZ 3.375 GM 50 ML IV SCH ×5 (06:03→23:30)
[2017-12-18] MEDS: SODIUM CHLORIDE 0.9% 1000ML 1,000 ML IV SCH (10:12)
[2017-12-18] MEDS: HYDROCODONE/APAP 7.5MG-325MG 1 EA TAB PO PRN ×2 (17:33→22:53)
[2017-12-18] MEDS: PANTOPRAZOLE 40 MG 10ML VIAL IV SCH (20:52)
[2017-12-19] VITALS (8 sets, daily range): BP systolic 136–162; BP diastolic 76–85
[2017-12-19] MEDS: PIPER-TAZ 3.375 GM 50 ML IV SCH ×4 (05:32→23:33)
[2017-12-19] MEDS: HYDROCODONE/APAP 7.5MG-325MG 1 EA TAB PO PRN ×2 (14:02→22:18)
[2017-12-19] MEDS: PANTOPRAZOLE 40 MG 10ML VIAL IV SCH (20:45)
[2017-12-19] MEDS ORDERED: SODIUM CHLORIDE 0.9% 50ML 50 ML ONE (22:57)
[2017-12-20] VITALS: BP 150/74
[2017-12-20 04:00] VITALS: BP 155/85
[2017-12-20] MEDS: PIPER-TAZ 3.375 GM 50 ML IV SCH (06:15)
[2017-12-20 08:00] VITALS: BP 146/76
[2017-12-20] MEDS: HYDROCODONE/APAP 7.5MG-325MG 1 EA TAB PO PRN (11:00)
--- NOTE | 2017-12-20 15:04 | Discharge Summary ---
NO DICTATION, LENGTH 35 SECONDS. SARA VALLADARES MD Job#: [id number]
--- NOTE | 2017-12-21 04:29 | Discharge Summary ---
DISCHARGE DIAGNOSIS: Small-bowel obstruction. PROCEDURES PERFORMED DURING THIS HOSPITALIZATION: Exploratory laparotomy, small-bowel resection with [id number] stapled anastomosis, and removal of old Ventralex large mesh by Dr. Santana Shay. HOSPITAL COURSE AND HOSPITALIZATION COURSE: The patient is a 52-year-old male who had undergone on November 26 repair of ventral hernia with placement of an intra-abdominal Ventralex mesh as well as an overlay flat lightweight Ultrapro mesh. The patient was discharged home and subsequently returned to the hospital with a small-bowel obstruction. The patient was taken to the operating room and underwent on December 13 the previously described procedure. He had a piece of intestine stuck to the side of the mesh that was kinked on itself and had created an obstruction. Postoperative course: The patient was kept n p.o. and given intravenous antibiotics. The NG tube was removed. His diet was advanced to regular, which he was tolerating well. The patient had a Juan J-Red drain that was removed the day of discharge. His wound was healing well. He had retention sutures placed, which were left in situ. The patient was discharged home in stable condition, afebrile, moving his bowels well. He will be followed up at the office the following discharge. Medications include Lortab 7.5 mg p.o. q.4-6 h. p.r.n. for pain. He was instructed to do no lifting. SARA SHAY MD Job#: [id number]
== END 2017-12-20 14:05 | disposition home or self-care (01) | DRG 331 ==
LOC: ER 19:01 → FSED 12-13 11:47 → IMCU 12-13 11:57 → OBSVTOIN 12-14 11:11 → MED/SURG 12-16 13:17
PROVIDERS: ADMIT Surgery; ATTEND Surgery
PROC: 0WPF0JZ Removal of Synthetic Substitute from Abdominal Wall, Open Approach (ICD-10-PCS; 2017-12-13)
PROC: 0DB80ZZ Excision of Small Intestine, Open Approach (ICD-10-PCS; principal; 2017-12-13 16:16)
DX: K91.32 Postprocedural complete intestinal obstruction (principal); Y83.2 Surgical operation with anastomosis, bypass or graft as the cause of abnormal reaction of the patient, or of later complication, without mention of misadventure at the time of the procedure; Y81.2 Prosthetic and other implants, materials and accessory general- and plastic-surgery devices associated with adverse incidents
CPT/HCPCS: 36415; 74020; 74021; 74176; 74177; 80048; 80053; 85025; 88305; 88307; 96361; 99284; G0378; J0694; J1100; J1200; J1885; J2001; J2250; J2270; J2405; J2543; J2710; J7030; Q9967

== ENCOUNTER → 2018-01-21 | Day surgery (SDC) | payer OTHER ==
[~2018-01-21] MED LIST changes: +BUPIVACAINE 0.25%/EPI 30ML SDV INJ ONE; +CEFAZOLIN SOD 1 GM VIAL ONE; +DEXAMETHASONE SOD PHOS INJ 4 MG/ML VIAL ONE; +FENTANYL CITRATE/PF 100MCG/2 ML INJ ONE; +HYDROCODONE/APAP 7.5MG-325MG 1 EA TAB ONE; +KEFLEX500 MG; +KETOROLAC TROMETHAMINE 30 MG/ML VIAL ONE; +LIDOCAINE HCL 2% LOCAL INJ 5 ML SDV VIAL INJ ONE; +MIDAZOLAM HCL 2 MG/2 ML VIAL ONE; +ONDANSETRON HCL INJ 2 MG/ML VIAL ONE; +PROPOFOL IV EMULSION 10 MG/ML 20 ML VIAL ONE; +ROCURONIUM BROMIDE 10 MG/ML 5ML VIAL ONE; +SEVOFLURANE INHAL SOLN 250 ML PEN BTL ONE; +SODIUM CHLORIDE 0.9% 50ML 50 ML ONE
--- OUTSIDE RECORDS SUMMARY | 2018-01-21 05:54 | XMS REPORT | Clinical Summary ---
Author Author [facility] Organization [facility] Address Unknown Phone Unavailable Care Team Providers Care Veterinary Poultry Inspector Name Role Phone Asked, Pcp PCP Unavailable [...] MD Right ureteral stone (Primary Dx) after 01/20/2017 Social History Tobacco Use Types Packs/Day Years Used Date Never Smoker Alcohol Use Drinks/Week oz/Week Comments No Sex Assigned at Date Recorded Not on file Last Filed Vital Signs Vital Sign Reading Time Taken Blood Pressure 123/82 11/23/2017 10:31 AM STEEL C[employer]TER Pulse 76 11/23/2017 10:31 AM STEEL CUTTER Temperature 36.8 C (98.2 F) 11/23/2017 10:31 AM STEEL C[employer]TER Respiratory Rate - - Oxygen Saturation - - Inhaled Oxygen - - Concentration Weight 122 kg (268 lb) 11/23/2017 10:31 AM STEEL CUTTER Height 177.8 cm (5' 10") 11/23/2017 10:31 AM STEEL CUTTER Body Mass Index 38.45 11/23/2017 10:31 AM STEEL CUTTER Plan of Treatment Health Maintenance Due Date Last Done Comments INFLUENZA VACCINE 06/08/2017 COLONOSCOPY 2017 Results Not on fileafter 01/20/2017 Insurance Payer Benefit Subscriber ID Type Phone Address Plan / Group [employer] xxxxxxxxx HMO/PPO THCARE CHOICE/CHO ICE +
--- OUTSIDE RECORDS SUMMARY | 2018-01-21 05:54 | XMS REPORT | Continuity of Care Document ---
Author Author [facility] Organization [facility] Address [address] [place] [address] Phone Unavailable Care Team Providers Care Knuckler Name Role Phone NO, PCP PCP Unavailable Insurance Providers Guarantor Nabil Giles Address [address] [place] [address] Email NONE Payer [facility] H[employer] Policy Number [id number] Subscriber's Name HcanNabil Relationship 18 Self / Same As Patient Group Number [id number] Effective Date 17 Advance Directives Directive Response Recorded Date/Time Does the patient have an advance directive? No 12/13/17 12:30pm If yes, is advance directive on file with [facility]? No 12/13/17 12:30pm If not on file with [facility] will patient provide a copy? No 12/13/17 12:30pm Do you have a Directive to Physician? No 12/13/17 7:56am Do you have a Medical Power of Corporate Quality Manager? No 12/13/17 7:56am Do you have an [...] Date/Time Onset Date Status Hx Psychiatric Problems No 12/13/2017 12:30pm Not Applicable Not Applicable Hx Eating Disorder No 12/13/2017 12:30pm Not Applicable Not Applicable Hx Substance Use Disorder No 12/13/2017 12:30pm Not Applicable Not Applicable Hx Depression No 12/13/2017 12:30pm Not Applicable Not Applicable Hx Alcohol Use No 12/13/2017 12:30pm Not Applicable Not Applicable Hx Substance Use Treatment No 12/13/2017 12:30pm Not Applicable Not Applicable Hx Physical Abuse No 12/13/2017 12:30pm Not Applicable Not Applicable Smoking Status Start Date Stop Date Never Smoker Hospital Discharge Instructions No hospital discharge instruction information available. Plan of Care Discharge Date 12/20/17 2:05pm Disposition HOME, SELF-CARE Instructions/Education Provided Bowel Obstruction Prescriptions See Medication Section Additional Instructions/Education FOLLOW UP WITH PCP IN 3-5 DAYS. DO NOT PULL UP HEAVY WEIGHTS OR AVOID STRAIN. FOLLOW UP WITH SURGEON DIERCED. Functional Status Query Response Date Recorded FUNCTIONAL STATUS . December 16, 2017 1:20pm Assistive Devices None December 13, 2017 12:30pm Ambulation Ability Independent December 13, 2017 12:30pm Toileting Ability Independent December 19, 2017 10:49am Allergies, Adverse Reactions, Alerts No known allergies. Immunizations No immunization information available. Vital Signs Acute Vital Signs Vital Response Date/Time Temperature (Fahrenheit) 97.3 degrees F (97.6 - 99.5) 12/20/2017 8:00am Pulse Pulse Rate (adult) 58 bpm (60 - 90) 12/20/2017 8:00am Respiratory Rate 18 bpm (12 - 24) 12/20/2017 8:00am Blood Pressure 146/76 mm Hg 12/20/2017 8:00am Height 5 ft 10 in 12/12/2017 7:10pm Weight 263.44 lb 12/19/2017 8:17am Body Mass Index 37.8 kg/m^2 12/19/2017 8:17am Results Laboratory Results Test Name Result Units Flags Reference Collection Date/Time Result Date/ Time Comments White Blood Count 10.68 x10e3/uL 4.8-10.8 12/17/2017 7:12/17/2017 7:34am Red Blood Count 4.00 x10e6/uL L 4.3-5.7 12/17/2017 7:12/17/2017 7: 34am Hemoglobin 12.2 g/dL L 14.0-18.0 12/17/2017 7:12/17/2017 7:34am Hematocrit 36.9 % L 38.2-49.6 12/17/2017 7:12/17/2017 7:34am Mean Corpuscular Volume 92.3 fL 81-99 12/17/2017 7:12/17/2017 7: 34am Mean Corpuscular Hemoglobin 30.5 pg 28-32 12/17/2017 7:12/17/2017 7:34am Mean Corpuscular Hemoglobin Concent 33.1 g/dL 31-35 12/17/2017 7:12/17/2017 7:34am Red Cell Distribution Width 13.2 % 11.7-14.4 12/17/2017 7:2017 7:34am Platelet Count 317 x10e3/uL 140-360 12/17/2017 7:12/17/2017 7: 34am Neutrophils (%) (Auto) 85.0 % H 38.7-80.0 12/17/2017 7:12/17/2017 7 :34am Lymphocytes (%) (Auto) 7.7 % L 18.0-39.1 12/17/2017 7:12/17/2017 7: 34am Monocytes (%) (Auto) 5.1 % 4.4-11.3 12/17/2017 7:12/17/2017 7: 34am Eosinophils (%) (Auto) 1.3 % 0.0-6.0 12/17/2017 7:12/17/2017 7: 34am Basophils (%) (Auto) 0.4 % 0.0-1.0 12/17/2017 7:12/17/2017 7:34am IM GRANULOCYTES % 0.5 % 0.0-1.0 12/17/2017 7:12/17/2017 7:34am Neutrophils # (Auto) 9.1 H 2.1-6.9 12/17/2017 7:12/17/2017 7: 34am Lymphocytes # (Auto) 0.8 L 1.0-3.2 12/17/2017 7:12/17/2017 7: 34am Monocytes # (Auto) 0.5 0.2-0.8 12/17/2017 7:12/17/2017 7:34am Eosinophils # (Auto) 0.1 0.0-0.4 12/17/2017 7:12/17/2017 7:34am Basophils # (Auto) 0.0 0.0-0.1 12/17/2017 7:12/17/2017 7:34am Absolute Immature Granulocyte (auto 0.05 x10e3/uL 0-0.1 12/17/2017 7: 12/17/2017 7:34am Sodium Level 143 mmol/L 136-145 12/17/2017 7:12/17/2017 8:08am Potassium Level 3.8 mmol/L 3.5-5.1 12/17/2017 7:12/17/2017 8:08am Chloride Level 109 mmol/L H 98-107 12/17/2017 7:12/17/2017 8:08am Carbon Dioxide Level 23 mmol/L 22-29 12/17/2017 7:12/17/2017 8: 08am Anion Gap 14.8 mmol/L 8-16 12/17/2017 7:12/17/2017 8:08am Blood Urea Nitrogen 13 mg/dL 7-26 12/17/2017 7:12/17/2017 8:08am Creatinine 0.70 mg/dL L 0.72-1.25 12/17/2017 7:12/17/2017 8:08am BUN/Creatinine Ratio 19 6-25 12/17/2017 7:12/17/2017 8:08am Estimat Glomerular Filtration Rate > 60 ML/MIN 60- 12/17/2017 7: 8:08am Ranges were taken from the National Kidney Disease Education Program and the National Kid[employer] Foundation literature. Reference ranges: 60 or greater: Normal 16-59 (for 3 consecutive months): Chronic kidney disease 15 or less: Kidney failure Glucose Level 109 mg/dL 74-118 12/17/2017 7:12/17/2017 8:08am Calcium Level 8.5 mg/dL 8.4-10.2 12/17/2017 7:12/17/2017 8:08am Total Bilirubin 0.7 mg/dL 0.2-1.2 12/17/2017 7:12/17/2017 8:08am Aspartate Amino Transf (AST/SGOT) 24 IU/L 5-34 12/17/2017 7:2017 8:08am Alanine Aminotransferase (ALT/SGPT) 12 IU/L 0-55 12/17/2017 7:07/2018 8:08am Total Protein 6.6 g/dL 6.5-8.1 12/17/2017 7:12/17/2017 8:08am Albumin 2.4 g/dL L 3.5-5.0 12/17/2017 7:12/17/2017 8:08am Globulin 4.2 g/dL H 2.3-3.5 12/17/2017 7:12/17/2017 8:08am Albumin/Globulin Ratio 0.6 L 0.8-2.0 12/17/2017 7:12/17/2017 8: 08am Alkaline Phosphatase 88 IU/L 40-150 12/17/2017 7:12/17/2017 8: 08am Procedures Procedure Status Date Provider(s) Repair of hernia of anterior abdominal wall Completed 11/26/17 SARA VALLADARES MD Exploratory laparotomy Completed 12/13/17 SARA VALLADARES MD X-ray of chest, two views Active 11/26/17 SARA VALLADARES MD Computed tomography of abdomen and pelvis with contrast Active 12/13/17 SARA VALLADARES MD Encounters Encounter Location Arrival/Admit Date Discharge/Depart Date Attending Provider Discharged Inpatient [facility] 12/14/17 11:11am 2:05pm SARA VALLADARES MD Discharged Inpatient (obs) [facility] 11/26/17 10:44am 6:23pm SARA VALLADARES MD Departed Emergency Room [facility] 11/17/17 7:41pm 7:49pm DESTINEE KRISHNAN MD
--- NOTE | 2018-01-21 10:47 | Operative Report ---
DATE OF PROCEDURE: January 21, 2018 PREOPERATIVE DIAGNOSIS: Left inguinal hernia. POSTOPERATIVE DIAGNOSIS: Left inguinal hernia. PROCEDURE PERFORMED: Repair of left inguinal hernia with the Ultrapro Hernia System, oval type. ANESTHESIA: General. ESTIMATED BLOOD LOSS: Minimal. DRAINS: None. COMPLICATIONS: None. INDICATIONS AND FINDINGS: The patient is a 52-year-old male who was admitted for repair of a large left inguinal hernia. INTRAOPERATIVE FINDINGS: The patient had a slider type of hernia with a sac that contained part of the sigmoid colon, and he had a very large lipoma of the cord. The Ultrapro Hernia System, oval type, was placed. DESCRIPTION OF PROCEDURE: With the patient lying on the operative table in the supine position, after administration of general endotracheal anesthesia, he was prepped and draped for repair of a left inguinal hernia. Preemptive anesthesia was given with 0.25% Marcaine with epinephrine as an ilioinguinal nerve block and an incisional nerve block. A transverse groin incision was made and deepened through the skin and subcutaneous tissue until the Christy fascia was identified. This was incised along the course of its fibers, transecting the external inguinal ring. Medial and lateral leaves were developed. The cord was mobilized at the level of the pubic tubercle and retracted away from the operative field by a [place] drain. The cremaster veil was incised. Flimsy sac was found that contained the sigmoid colon. The sigmoid colon was reduced, and the sac was closed using a running 2-0 Vicryl. The large lipoma was excised and tied off with 2-0 Vicryl. Then the preperitoneal space was entered, and a pocket was created using blunt dissection to accommodate the mesh. Then the Ultrapro Hernia System was deployed with the underlay part of the mesh over the direct space and the overlay part of the mesh over the inguinal canal floor. A slit was made to accommodate the cord. Then the mesh was secured to local tissues using a series of interrupted 2-0 sutures. The wound was irrigated. Bleeding points were cauterized. Then the wound was closed in layers using 2-0 Vicryl for the external oblique aponeurosis and 2-0 catgut for the soft tissues, and the skin was closed using magdy. Sterile dressing was applied. Patient tolerated the procedure well and was taken to the recovery room in stable condition. Job#: [id number]
== END | disposition home or self-care (01) ==
LOC: OR 05:52
PROVIDERS: ATTEND Surgery
DX: K40.90 Unilateral inguinal hernia, without obstruction or gangrene, not specified as recurrent (principal); D17.6 Benign lipomatous neoplasm of spermatic cord; K44.9 Diaphragmatic hernia without obstruction or gangrene
CPT/HCPCS: 49505; 88302; C1781; J0690; J1100; J1885; J2001; J2250; J2405; 88304